=== PATIENT | female | born 1955 | race Caucasian/White ===

== ENCOUNTER 2018-07-29 20:36 | Emergency (ER) | payer OTHER ==
[~2018-07-29] VITALS: Ht 157.5 cm; Wt 99.8 kg
[~2018-07-29 20:36] MED LIST: ATA25 PO; AZAT50TA PO; FERR325E14 PO; GABA300C PO; LEVO500T2 PO; METH500T14 PO; METO100T14 PO; PANT40EC PO; [UNRECOGNIZED DRUG - CODE] PO
[2018-07-29 20:52] VITALS: BP 149/76
--- NOTE | 2018-07-29 20:55 | NUR ---
PT TRIAGED AND SENT TO ER LOBBY
--- NOTE | 2018-07-29 21:33 | NUR ---
PT C/O 07/12 WORSENING KNEE AND BACK PAIN FROM RHEUMATOID ARTHRITIS AND FEVERS. ON ARRIVAL NO FEVER, DENIES CP/SOB, UNABLE TO AMBULATE. ALSO C/O COLD SYMPTOMS X 3 DAYS. DENIES INJURY. HX---CIRRHOSIS, LOW PLATELET MEDS--SEE MED REC
--- NOTE | 2018-07-29 21:45 | NUR ---
RECEIVED REPORT FROM MALLORY GABRIEL. TRANSFER OF CARE AT THIS TIME.
--- NOTE | 2018-07-29 22:00 | NUR ---
PATIENT RESTING AT THIS TIME. NO SIGNS OF DISTRESS.
[2018-07-29] MEDS ORDERED: HYDROcodone/APAP 5/325 MG 1 TAB TAB PO ONE (22:30)
[2018-07-29] MEDS ORDERED: KETOROLAC 30 MG/ML VIAL IM ONE (22:30)
[2018-07-29 23:10] VITALS: BP 138/82
--- NOTE | 2018-07-29 23:10 | NUR ---
Patient discharged with v/s stable. Written and verbal after care instructions given and explained. Patient alert, oriented and verbalized understanding of instructions. Wheel Chair Assisted with to car. All questions addressed prior to discharge. ID band removed. Patient advised to follow up with PMD. Rx of NAPROSYN 500MG AND NORCO 5MG-325MG given. Patient educated on indication of medication including possible reaction and side effects. Opportunity to ask questions provided and answered.
== END 2018-07-29 23:10 | disposition home or self-care (01) ==
LOC: MED 20:36
DX: M17.11 Unilateral primary osteoarthritis, right knee (principal); I10 Essential (primary) hypertension; K74.60 Unspecified cirrhosis of liver; Z88.8 Allergy status to other drugs, medicaments and biological substances; Z79.899 Other long term (current) drug therapy
CPT/HCPCS: 73562; 96372; 99284; J1885